=== PATIENT | male | born 1995 | race Caucasian/White ===

== ENCOUNTER 2019-11-12 10:35 | Emergency (ER) | payer OTHER ==
[2019-11-12 10:40] VITALS: RESP 18
--- NOTE | 2019-11-12 10:53 | ED ---
General Adult HPI - General Chief complaint: Nausea/Vomiting/Diarrhea Stated complaint: vomiting/altered mental status Time Seen by Provider: 11/12/19 10:42 Source: patient Mode of arrival: ambulatory Limitations: no limitations - History of Present Illness Initial comments: Dictation was produced using [employer] dictation software. please excuse any grammatical, word or spelling errors. This patient was cared for during a federal and state declared state of emergency secondary to Covid 19 Chief Complaint: 24-year-old male with past medical history of illicit drug abuse presents with nausea vomiting and confusion History of Present Illness: 24-year-old male who states that 2 weeks ago he did approximately 150 There is of "whip its" that he obtained from the grocery store. Patient states that since then he's been feeling nauseous. Patient also having some vomiting. Patient smokes marijuana recreationally. He's been swelling for 6 years approximate 3-4 times a day. Last marijuana use was yesterday. Patient states that even very nauseous and vomiting. Denies any numbness obtained showing. No pain. Denies any other abdominal symptoms. The ROS documented in this emergency department record has been reviewed and co nfirmed by me. Those systems with pertinent positive or negative responses have been documented in the HPI. All other systems are other negative and/or noncontributory. PHYSICAL EXAM: General Impression: Alert and oriented x3, diaphoretic HEENT: Normocephalic atraumatic, extra-ocular movements intact, pupils equal and reactive to light bilaterally, mucous membranes moist. Cardiovascular: Heart regular rate and rhythm Chest: Able to complete full sentences, no retractions, no tachypnea Abdomen: Bowel sounds present, abdomen soft, non-tender, non-distended, no organomegaly Musculoskeletal: Pulses present and equal in all extremities, no peripheral edema Motor: no focal deficits noted Neurological: CN II-XII grossly intact, no focal motor or sensory deficits noted Skin: Intact with no visualized rashes Psych: Normal affect and mood ED course: 24-year-old male presents with nausea and vomiting. Patient reports that his symptoms started after excessive use of nitrous oxide inhalation. Upon arrival are within acceptable limits. Patient diaphoretic at bedside. Laboratory evaluation obtained. CBC is unremarkable. Venous blood gas shows alkalemia suspicious for respiratory alkalemia. Metabolic panel shows mild anion gap with minimal acidosis. Rest metabolic panel is unremarkable. Toxicology screen is positive for marijuana. Patient given intravenous fluids and Zofran. He feels a lot better. Patient requests to be discharged. He is much better appearing. Tolerate oral at bedside. Patient advised follow-up with primary care physician. Given Zofran ODT starter pack. Patient will be discharged. Still to avoid using illicit substances. He is also warned of cannabis hyperemesis syndrome. EKG interpretation: Ventricular rate 66, normal sinus rhythm,. Interval 172, QRS 94, QTC 406. No CA prolongation, no QTC prolongation, no ST or T-wave changes noted. Overall, this EKG is unremarkable - Related Data Home Medications Medication Instructions Recorded Confirmed No Known Home Medications 08/01/14 11/12/19 Allergies Allergy/AdvReac Type Severity Reaction Status Date / Time No Known Allergies Allergy Verified 11/12/19 10:59 Review of Systems ROS Statement: Those systems with pertinent positive or pertinent negative responses have been documented in the HPI. ROS Other: All systems not noted in ROS Statement are negative. Past Medical History Past Medical History: No Reported History History of Any Multi-Drug Resistant Organisms: None Reported Past Surgical History: No Surgical Hx Reported Past Psychological History: No Psychological Hx Reported Smoking Status: Current every day smoker Past Alcohol Use History: Occasional Past Drug Use History: Marijuana General Exam Limitations: no limitations Course Vital Signs 11/12/19 10:37 Temperature 97.7 F Pulse Rate 97 Respiratory 18 Rate Blood Pressure 172/80 O2 Sat by Pulse 98 Oximetry Medical Decision Making - Lab Data Result diagrams: 11/12/19 10:47 11/12/19 10:47 Lab Results 11/12/19 11/12/19 11/12/19 Range/Units 10:47 10:47 10:47 WBC 10.4 (3.8-10.6) k/uL RBC 5.37 (4.30-5.90) m/uL Hgb 17.0 (13.0-17.5) gm/dL Hct 50.1 (39.0-53.0) % MCV 93.3 (80.0-100.0) fL MCH 31.6 (25.0-35.0) pg MCHC 33.9 (31.0-37.0) g/dL RDW 12.3 (11.5-15.5) % Plt Count 236 (150-450) k/uL Neutrophils % 73 % Lymphocytes % 19 % Monocytes % 6 % Eosinophils % 1 % Basophils % 0 % Neutrophils # 7.6 (1.3-7.7) k/uL Lymphocytes # 1.9 (1.0-4.8) k/uL Monocytes # 0.6 (0-1.0) k/uL Eosinophils # 0.1 (0-0.7) k/uL Basophils # 0.0 (0-0.2) k/uL VBG pH (7.31-7.41) VBG pCO2 (37-51) mmHg VBG HCO3 (24-28) mmol/L Sodium 141 (137-145) mmol/L Potassium 4.1 (3.5-5.1) mmol/L Chloride 105 (98-107) mmol/L Carbon Dioxide 21 L (22-30) mmol/L Anion Gap 15 mmol/L BUN 10 (9-20) mg/dL Creatinine 0.81 (0.66-1.25) mg/dL Est GFR (CKD-EPI)AfAm >90 (>60 ml/min/1.73 sqM) Est GFR (CKD-EPI)NonAf >90 (>60 ml/min/1.73 sqM) Glucose 122 H (74-99) mg/dL Calcium 9.8 (8.4-10.2) mg/dL Total Bilirubin 1.4 H (0.2-1.3) mg/dL AST 26 (17-59) U/L ALT 30 (4-49) U/L Alkaline Phosphatase 53 (38-126) U/L Total Protein 8.1 (6.3-8.2) g/dL Albumin 4.8 (3.5-5.0) g/dL Lipase 93 (23-300) U/L Salicylates <1.0 mg/dL Urine Opiates Screen Not Detected (NotDetected) Ur Oxycodone Screen Not Detected (NotDetected) Urine Methadone Screen Not Detected (NotDetected) Ur Propoxyphene Screen Not Detected (NotDetected) Acetaminophen <10.0 ug/mL Ur Barbiturates Screen Not Detected (NotDetected) U Tricyclic Antidepress Not Detected (NotDetected) Ur Phencyclidine Scrn Not Detected (NotDetected) Ur Amphetamines Screen Not Detected (NotDetected) U Methamphetamines Scrn Not Detected (NotDetected) U Benzodiazepines Scrn Not Detected (NotDetected) Urine Cocaine Screen Not Detected (NotDetected) U Marijuana (THC) Screen Detected H (NotDetected) Serum Alcohol <10 mg/dL 11/12/19 Range/Units 11:06 WBC (3.8-10.6) k/uL RBC (4.30-5.90) m/uL Hgb (13.0-17.5) gm/dL Hct (39.0-53.0) % MCV (80.0-100.0) fL MCH (25.0-35.0) pg MCHC (31.0-37.0) g/dL RDW (11.5-15.5) % Plt Count (150-450) k/uL Neutrophils % % Lymphocytes % % Monocytes % % Eosinophils % % Basophils % % Neutrophils # (1.3-7.7) k/uL Lymphocytes # (1.0-4.8) k/uL Monocytes # (0-1.0) k/uL Eosinophils # (0-0.7) k/uL Basophils # (0-0.2) k/uL VBG pH 7.47 H (7.31-7.41) VBG pCO2 33 L (37-51) mmHg VBG HCO3 24 (24-28) mmol/L Sodium (137-145) mmol/L Potassium (3.5-5.1) mmol/L Chloride (98-107) mmol/L Carbon Dioxide (22-30) mmol/L Anion Gap mmol/L BUN (9-20) mg/dL Creatinine (0.66-1.25) mg/dL Est GFR (CKD-EPI)AfAm (>60 ml/min/1.73 sqM) Est GFR (CKD-EPI)NonAf (>60 ml/min/1.73 sqM) Glucose (74-99) mg/dL Calcium (8.4-10.2) mg/dL Total Bilirubin (0.2-1.3) mg/dL AST (17-59) U/L ALT (4-49) U/L Alkaline Phosphatase (38-126) U/L Total Protein (6.3-8.2) g/dL Albumin (3.5-5.0) g/dL Lipase (23-300) U/L Salicylates mg/dL Urine Opiates Screen (NotDetected) Ur Oxycodone Screen (NotDetected) Urine Methadone Screen (NotDetected) Ur Propoxyphene Screen (NotDetected) Acetaminophen ug/mL Ur Barbiturates Screen (NotDetected) U Tricyclic Antidepress (NotDetected) Ur Phencyclidine Scrn (NotDetected) Ur Amphetamines Screen (NotDetected) U Methamphetamines Scrn (NotDetected) U Benzodiazepines Scrn (NotDetected) Urine Cocaine Screen (NotDetected) U Marijuana (THC) Screen (NotDetected) Serum Alcohol mg/dL Disposition Clinical Impression: Nausea Disposition: HOME SELF-CARE Condition: Good Instructions (If sedation given, give patient instructions): Acute Nausea and Vomiting (ED) Is patient prescribed a controlled substance at d/c from ED?: No Referrals: Vandana Sandhu MD [STAFF PHYSICIAN] - 1-2 days Time of Disposition: 12:01
[2019-11-12] MEDS: ONDANSETRON 4 MG/2 ML VIAL IVP STA (11:01)
[2019-11-12] MEDS: SODIUM CHLORIDE 0.9% 1,000 ML IV STA (11:02)
[2019-11-12 11:11] LABS: Basophils % (A) 0 %; Eosinophils # (A) 0.1 k/uL (0-0.7); Eosinophils % (A) 1 %; HCT 50.1 % (39.0-53.0); Lymphocytes # (A) 1.9 k/uL (1.0-4.8); Lymphocytes % (A) 19 %; MCH 31.6 pg (25.0-35.0); MCHC 33.9 g/dL (31.0-37.0); MCV 93.3 fL (80.0-100.0); Mean Platelet Volume 8.1; Monocytes # (A) 0.6 k/uL (0-1.0); Monocytes % (A) 6 %; Neutrophils # (A) 7.6 k/uL (1.3-7.7); Neutrophils % (A) 73 %; Platelet Count 236 k/uL (150-450); RBC 5.37 m/uL (4.30-5.90); RDW 12.3 % (11.5-15.5); WBC 10.4 k/uL (3.8-10.6)
[2019-11-12 11:12] LABS: VBG PH 7.47 (7.31-7.41)
--- NOTE | 2019-11-12 11:15 | XR ---
EXAMINATION TYPE: XR chest 1V portable DATE OF EXAM: 11/12/2019 COMPARISON: Chest x-ray 1996 HISTORY: Nausea and weakness. TECHNIQUE: Single AP portable frontal view of the chest is obtained. FINDINGS: There is no focal air space opacity, pleural effusion, or pneumothorax seen. The cardiac silhouette size is within normal limits. The osseous structures are intact. IMPRESSION: No acute process.
[2019-11-12 11:23] LABS: ALT 30 U/L (4-49); AST 26 U/L (17-59); Acetaminophen <10.0 ug/mL; African American GFR (CKD) >90 (>60 ml/min/1.73 sqM); Albumin 4.8 g/dL (3.5-5.0); Alcohol <10 mg/dL; Alkaline Phosphatase 53 U/L (38-126); Anion Gap 15 mmol/L; Blood Urea Nitrogen 10 mg/dL (9-20); Calcium 9.8 mg/dL (8.4-10.2); Carbon Dioxide 21 mmol/L (22-30); Chloride 105 mmol/L (98-107); Glucose 122 mg/dL (74-99); Non-African American GFR(CKD) >90 (>60 ml/min/1.73 sqM); Potassium 4.1 mmol/L (3.5-5.1); Salicylate <1.0 mg/dL; Sodium 141 mmol/L (137-145); Total Bilirubin 1.4 mg/dL (0.2-1.3); Total Protein 8.1 g/dL (6.3-8.2)
[2019-11-12 11:42] LABS: Amphetamine Screen,Urine Not Detected (NotDetected); Barbiturate Screen,Urine Not Detected (NotDetected); Benzodiazepines Screen,Urine Not Detected (NotDetected); Cocaine Screen,Urine Not Detected (NotDetected); Methadone Screen, Urine Not Detected (NotDetected); Opiate Screen,Urine Not Detected (NotDetected); Oxycodone Screen, Urine Not Detected (NotDetected); Phencyclidine Screen,Urine Not Detected (NotDetected); Tricyclic Antidepressant,Urine Not Detected (NotDetected); Urn Cannabinoid Scrn Detected (NotDetected)
[2019-11-12] MEDS: ONDANSETRON 4 MG ODT STARTER PACK 2 TAB BTL PO STA ×2 (12:07)
[2019-11-12 12:10] VITALS: BP 133/78; PULSE 82; TEMP 98
== END 2019-11-12 12:10 | disposition home or self-care (01) ==
LOC: EC 10:35
DX: E87.3 Alkalosis (principal); E87.2 Acidosis; R78.89 Finding of other specified substances, not normally found in blood; T41.0X1A Poisoning by inhaled anesthetics, accidental (unintentional), initial encounter; R11.0 Nausea; F17.200 Nicotine dependence, unspecified, uncomplicated
CPT/HCPCS: 36415; 71045; 80053; 80306; 80320; 80329; 82803; 83520; 83690; 85025; 93005; 96361; 96374; 99285